=== PATIENT | female | born 1955 | race African-American/Black ===

== ENCOUNTER 2016-09-17 09:17 | Emergency (ER) | payer MEDICARE, MEDICAID ==
[~2016-09-17] VITALS: Ht 177.8 cm; Wt 100.0 kg
[2016-09-17] MEDS ORDERED: MORPHINE SULFATE 4 MG/ML CPJ (NOT FOR IM USE) IV STA (10:26)
[2016-09-17] MEDS ORDERED: ONDANSETRON HCL 4MG/2ML VIAL IV STA (10:26)
[2016-09-17] MEDS ORDERED: SODIUM CHLORIDE 0.9% 1,000 ML IV ONE (10:26)
[2016-09-17 10:44] LABS: BASOPHILS % 0.9 % (0.0-2.0); EOSINOPHILS % 14.7 % (0.0-5.0); HEMATOCRIT. 34.6 % (36.0-48.0); HEMOGLOBIN. 11.5 g/dL (12.0-16.0); LYMPHOCYTES % 32.6 % (20.0-50.0); MEAN CORPUSCULAR HEMOGLOBIN 30.2 pg (28.0-32.0); MEAN CORPUSCULAR HGB CONC 33.2 g/dL (31.0-37.0); MEAN PLATELET VOLUME 7.9 fl (7.4-10.4); MONOCYTES % 7.6 % (2.0-8.0); NEUTROPHILS % 44.2 % (40.0-76.0); PLATELET 273 x1000/uL (130-400); RED CELL DISTRIBUTION WIDTH 12.7 % (11.6-14.6); WHITE BLOOD COUNT 4.2 x1000/uL (4.5-11.0)
[2016-09-17 10:51] VITALS: BP 144/84
[2016-09-17 10:54] LABS: ALANINE AMINOTRANSFERASE 15 IU/L (13-61); ALBUMIN 3.6 g/dL (3.4-5.0); ANION GAP 13; CALCIUM 8.5 mg/dL (8.5-10.1); CARBON DIOXIDE 30 mEq/L (21-32); CHLORIDE 103 mEq/L (98-107); INDEX HEMOLYSI 1 (1-3); INDEX ICTERIC 1 (1-4); INDEX LIPEMIC 1 (1-3); INR 1.1; LIPASE 147 IU/L (73-393); PROTHROMBIN TIME 11.2 sec; UREA NITROGEN BLOOD 5 mg/dL (7-21); eGFR > 60 mL/min (>60)
== END 2016-09-17 14:45 | disposition left against medical advice (07) ==
LOC: ER 10:47
DX: R10.33 Periumbilical pain (principal); R11.2 Nausea with vomiting, unspecified; D25.9 Leiomyoma of uterus, unspecified; K76.89 Other specified diseases of liver; Z96.642 Presence of left artificial hip joint; Z85.72 Personal history of non-Hodgkin lymphomas
CPT/HCPCS: 36415; 74177; 80053; 83690; 85025; 85610; 96361; 96374; 96375; 99285; J2270; J2405; J7030

== ENCOUNTER 2018-03-09 20:18 | Emergency (ER) | payer MEDICARE, MEDICAID ==
[~2018-03-09] VITALS: Ht 182.9 cm; Wt 100.0 kg
[2018-03-09] MEDS ORDERED: SODIUM CHLORIDE 0.9% 1,000 ML IV ONE (20:41)
[2018-03-09 21:23] LABS: BASOPHILS % 0.6 % (0.0-2.0); EOSINOPHILS % 8.2 % (0.0-5.0); HEMATOCRIT. 35.4 % (36.0-48.0); HEMOGLOBIN. 11.8 g/dL (12.0-16.0); LYMPHOCYTES % 32.4 % (20.0-50.0); MEAN CORPUSCULAR HEMOGLOBIN 29.8 pg (28.0-32.0); MEAN CORPUSCULAR VOLUME 89.1 fL (81.0-99.0); MEAN PLATELET VOLUME 8.1 fl (7.4-10.4); MONOCYTES % 5.8 % (2.0-8.0); PLATELET 329 x1000/uL (130-400); RED BLOOD CELL COUNT 3.97 mill/uL (4.2-5.4); RED CELL DISTRIBUTION WIDTH 13.4 % (11.6-14.6)
[2018-03-09 21:29] LABS: CHLORIDE 102 mEq/L (98-107)
[2018-03-09 22:37] LABS: CLARITY URINE CLEAR (CLEAR); COLOR URINE YELLOW (YELLOW); KETONES URINE NEGATIVE (NEGATIVE); LEUKOCYTE ESTERASE URINE TRACE (NEGATIVE); NITRITE URINE NEGATIVE (NEGATIVE); OCCULT BLOOD URINE NEGATIVE (NEGATIVE); PH URINE 8.5 (4.5-8.0); PROTEIN URINE NEGATIVE (NEGATIVE); SPECIFIC GRAVITY URINE 1.007 (1.005-1.030); UROBILINOGEN URINE 0.2 E.U./dL (0.2-1.0)
[2018-03-09] MEDS ORDERED: POTASSIUM CHLORIDE 20MEQ TABLET SR PO ONE (23:45)
[2018-03-10 00:10] VITALS: BP 132/76
== END 2018-03-10 00:12 | disposition home or self-care (01) ==
LOC: ER 20:18
DX: R53.1 Weakness (principal); R42 Dizziness and giddiness; E87.6 Hypokalemia; N30.00 Acute cystitis without hematuria
CPT/HCPCS: 36415; 80053; 81003; 85025; 93005; 96360; 99285; J7030

== ENCOUNTER 2021-02-11 11:59 | Inpatient (IN) | payer MEDICARE, MEDICAID ==
[~2021-02-11] VITALS: Ht 177.8 cm; Wt 109.3 kg
[2021-02-11] MEDS: DEXT 5%/0.45% NACL 500ML 500 ML IV SCH ×2 (05:05→19:30)
[2021-02-11 12:39] LABS: BASOPHILS % 0.8 % (0.0-2.0); EOSINOPHILS % 8.2 % (0.0-5.0); HEMATOCRIT. 37.5 % (36.0-48.0); HEMOGLOBIN. 12.5 g/dL (12.0-16.0); LYMPHOCYTES % 43.2 % (20.0-50.0); MEAN CORPUSCULAR HEMOGLOBIN 29.7 pg (28.0-32.0); MEAN CORPUSCULAR VOLUME 89.6 fL (81.0-99.0); MEAN PLATELET VOLUME 8.2 fl (7.4-10.4); MONOCYTES % 6.9 % (2.0-8.0); NEUTROPHILS % 40.9 % (40.0-76.0); PLATELET 315 x1000/uL (130-400); RED BLOOD CELL COUNT 4.19 mill/uL (4.2-5.4)
[2021-02-11 12:49] LABS: CHLORIDE 106 mEq/L (98-107)
[2021-02-11] MEDS ORDERED: ASPIRIN 81MG TABLET PO ONE (14:15)
[2021-02-11] MEDS ORDERED: HYDROCODONE/ACETAMINOPHEN 5/325MG TABLET PO ONE (14:30)
[2021-02-11] MEDS ORDERED: ONDANSETRON HCL 4MG/2ML INJ IV ONE (15:00)
[2021-02-11] MEDS ORDERED: ONDANSETRON HCL 4MG/2ML INJ IV PRN (15:45)
[2021-02-11] MEDS ORDERED: IOHEXOL-300 100 ML BOTTLE ONE (20:51)
[2021-02-12] VITALS: BP 102/66
[2021-02-12] MEDS ORDERED: METF-414 MT (00:23)
[2021-02-12] MEDS ORDERED: HYDROCODONE/ACETAMINOPHEN 5/325MG TABLET PO PRN (00:30)
[2021-02-12] MEDS ORDERED: DEXTROSE 50% WATER 50ML SYRINGE IV PRN (00:30)
[2021-02-12] MEDS ORDERED: NALOXONE HCL 0.4MG/ML VIAL IV PRN (01:00)
[2021-02-12 04:00] VITALS: BP 108/60
[2021-02-12] MEDS: DEXT 5%/0.45% NACL 500ML 500 ML IV SCH ×2 (05:05→11:28)
[2021-02-12] MEDS: INSULIN LISPRO 100 UNITS/ML SUBCUT SCH ×2 (06:13→11:27)
[2021-02-12] MEDS: BLOOD SUGAR DIAGNOSTIC STRIP TEST SCH ×2 (06:13→11:27)
[2021-02-12 08:00] VITALS: BP 101/57
[2021-02-12] MEDS ORDERED: PNEUMOCOCCAL 23-VAL P-SAC VAC 0.5 ML IM ONE (08:00)
[2021-02-12] MEDS ORDERED: ENOXAPARIN 30MG/0.3ML SYR SUBCUT SCH (09:00)
[2021-02-12] MEDS ORDERED: ASPIRIN 81MG TABLET PO SCH (09:00)
[2021-02-12 12:00] VITALS: BP 108/65
[2021-02-12 13:18] VITALS: BP 108/65
[2021-02-12 14:16] LABS: CLARITY URINE CLEAR (CLEAR); COLOR URINE YELLOW (YELLOW); KETONES URINE NEGATIVE (NEGATIVE); LEUKOCYTE ESTERASE URINE NEGATIVE (NEGATIVE); NITRITE URINE NEGATIVE (NEGATIVE); OCCULT BLOOD URINE NEGATIVE (NEGATIVE); PH URINE 6.5 (4.5-8.0); PROTEIN URINE NEGATIVE (NEGATIVE)
== END 2021-02-12 14:30 | disposition home or self-care (01) | DRG 74 ==
LOC: ER 12:12 → MICUSO 14:48 → EDBEDREQTM 14:53 → EDBEDREQ 14:53 → 7EST 22:53
PROVIDERS: ADMIT Internal Medicine; ATTEND Internal Medicine
DX: G90.8 Other disorders of autonomic nervous system (principal); C85.90 Non-Hodgkin lymphoma, unspecified, unspecified site; Z96.643 Presence of artificial hip joint, bilateral; E11.9 Type 2 diabetes mellitus without complications; N28.1 Cyst of kidney, acquired; N28.9 Disorder of kidney and ureter, unspecified; E66.9 Obesity, unspecified; F17.200 Nicotine dependence, unspecified, uncomplicated; I10 Essential (primary) hypertension; Z82.49 Family history of ischemic heart disease and other diseases of the circulatory system; Z68.34 Body mass index [BMI] 34.0-34.9, adult
CPT/HCPCS: 36415; 71045; 74177; 80053; 81003; 82962; 83880; 84484; 85025; 90732; 93005; 99285; J1650; J2405; Q9967

== ENCOUNTER 2021-03-16 05:56 | Emergency (ER) | payer MEDICARE, MEDICAID ==
[~2021-03-16] VITALS: Ht 177.8 cm; Wt 105.0 kg
[~2021-03-16 05:56] MED LIST: METF-414 MT
[2021-03-16 06:13] VITALS: BP 110/66
== END 2021-03-16 07:42 | disposition home or self-care (01) ==
LOC: ER 05:56
DX: H53.8 Other visual disturbances (principal); E11.9 Type 2 diabetes mellitus without complications; Z85.9 Personal history of malignant neoplasm, unspecified
CPT/HCPCS: 99281

== ENCOUNTER 2024-11-05 07:44 | Emergency (ER) | payer MEDICARE, MEDICAID ==
[~2024-11-05] VITALS: Ht 172.7 cm; Wt 91.0 kg
[2024-11-05 07:54] VITALS: O2SAT 99
[2024-11-05 07:55] VITALS: BP 116/73; PULSE 71; RESP 15; TEMP 36.9; O2SAT 98
[2024-11-05] MEDS: SODIUM CHLORIDE 0.9% 1,000 ML IV ONE (08:11)
[2024-11-05 08:21] LABS: BASOPHILS % 0.6 % (0.0-2.0); EOSINOPHILS % 7.8 % (0.0-5.0); HEMATOCRIT. 38.4 % (36.0-48.0); HEMOGLOBIN. 12.5 g/dL (12.0-16.0); LYMPHOCYTES % 30.3 % (20.0-50.0); MEAN CORPUSCULAR HEMOGLOBIN 30.4 pg (28.0-32.0); MEAN CORPUSCULAR HGB CONC 32.5 g/dL (31.0-37.0); MEAN CORPUSCULAR VOLUME 93.5 fL (81.0-99.0); MEAN PLATELET VOLUME 8.1 fl (7.4-10.4); MONOCYTES % 5.2 % (2.0-8.0); NEUTROPHILS % 56.1 % (40.0-76.0); PLATELET 295 x1000/uL (130-400); RED BLOOD CELL COUNT 4.11 mill/uL (4.2-5.4); RED CELL DISTRIBUTION WIDTH 12.8 % (11.6-14.6); WHITE BLOOD COUNT 5.2 x1000/uL (4.5-11.0)
[2024-11-05 08:50] LABS: CHLORIDE 107 mEq/L (98-107); POTASSIUM 4.1 mEq/L (3.5-5.1); SODIUM 140 mEq/L (136-145)
[2024-11-05 08:51] LABS: CALCIUM 8.8 mg/dL (8.7-10.4); CARBON DIOXIDE 22 mEq/L (21-32)
[2024-11-05 08:56] LABS: GLUCOSE 119 mg/dL (70-105); UREA NITROGEN BLOOD 7 mg/dL (9-23)
[2024-11-05 09:11] LABS: TROPONIN I HIGH SENSITIVITY < 4 ng/L (3.0-34)
== END 2024-11-05 09:30 | disposition home or self-care (01) ==
LOC: ER 07:44
DX: R55 Syncope and collapse (principal)
CPT/HCPCS: 99283; 96360; 80048; 85025; 84484; 36415; J7030; A4606

== ENCOUNTER 2024-11-30 17:00 | Emergency (ER) | payer MEDICARE, MEDICAID ==
[~2024-11-30] VITALS: Ht 177.8 cm; Wt 100.0 kg
[2024-11-30 17:10] VITALS: RESP 18; O2SAT 100
[2024-11-30] MEDS: BACITRACIN ZINC OINT UDPKT TOP ONE (18:14)
[2024-11-30] MEDS ORDERED: CEPH500C2 MT (18:23)
[2024-11-30 18:39] VITALS: BP 105/66; PULSE 81; TEMP 37; O2SAT 100
== END 2024-11-30 18:40 | disposition home or self-care (01) ==
LOC: ER 17:00
DX: S61.211A Laceration without foreign body of left index finger without damage to nail, initial encounter (principal); I95.9 Hypotension, unspecified; Z79.84 Long term (current) use of oral hypoglycemic drugs; Z85.830 Personal history of malignant neoplasm of bone; Z79.899 Other long term (current) drug therapy; W45.8XXA Other foreign body or object entering through skin, initial encounter; Y93.89 Activity, other specified; Y92.89 Other specified places as the place of occurrence of the external cause; Y99.8 Other external cause status
CPT/HCPCS: 99283